=== PATIENT | male | born 1950 | race Caucasian/White ===

== ENCOUNTER 2020-07-13 06:22 | Day surgery (SDC) | payer MEDICARE, OTHER ==
[2020-07-13] MEDS ORDERED: Sodium Chloride 0.9% 1,000 ML IV SCH (07:15)
[2020-07-13] MEDS ORDERED: Propofol 200 MG/20 ML SDV ONE (07:24)
[2020-07-13] MEDS ORDERED: fentaNYL 100 MCG/2 ML SDV ONE (07:24)
[2020-07-13 08:57] VITALS: BP 145/74; PULSE 59
--- NOTE | 2020-07-13 10:31 | OR ---
DATE OF PROCEDURE: 07/13/2020 SURGEON: Kiran Mendes MD PROCEDURE: Esophagogastroduodenoscopy. FINDINGS: 1. Narrowing of the GE junction requiring dilation with 45-[place] balloon. 2. Hiatal hernia approximately 3 cm in size. 3. Acute gastritis (biopsied for H pylori purposes). 4. Inflammation at GE junction concerning for reflux disease. This was biopsied multiple times using cold biopsy forceps. PREOPERATIVE DIAGNOSIS: Dysphagia. POSTOPERATIVE DIAGNOSIS: Dysphagia. RISKS: Risks, benefits, alternatives, and limitations including, but not limited to infection bleeding, false positives, false negatives were explained to the patient along with perforation and other risks not listed here. He understood these risks, wishes to proceed. PROCEDURE IN DETAIL: The patient was placed in left lateral decubitus position. The EGD scope was introduced and advanced atraumatically to the second part of the duodenum. Within the duodenum itself, there was no evidence of duodenitis or ulceration. Within the stomach itself, the patient had gastritis and what could have been a healing area of ulcer versus gastritis. Nonetheless, this was biopsied for H pylori purposes and this appears to be improving. No abnormalities on retroflexion. In the GE junction, there were multiple issues. The patient had a narrowing or stricture which decreased the luminal diameter by approximately 20% to 30%. This was dilated using a 35-[place] balloon and was also biopsied multiple times using cold biopsy forceps. This small area of inflammation of the GE junction was also biopsied using cold biopsy forceps. The remainder of the esophagus inspected was without abnormality. The patient tolerated the procedure well. Kiran Mendes MD /[id number]
== END 2020-07-13 09:22 | disposition home or self-care (01) ==
LOC: JP.SDS 06:22
PROVIDERS: ATTEND Surgery
DX: K20.90 Esophagitis, unspecified without bleeding (principal); K29.00 Acute gastritis without bleeding; K44.9 Diaphragmatic hernia without obstruction or gangrene; K22.2 Esophageal obstruction; I10 Essential (primary) hypertension; I45.4 Nonspecific intraventricular block; E11.9 Type 2 diabetes mellitus without complications
CPT/HCPCS: 88305; 88312; J2704; J3010; J7030

== ENCOUNTER 2023-10-17 07:09 | Day surgery (SDC) | payer MEDICARE, OTHER ==
[2023-10-17] MEDS: Sodium Chloride 0.9% 1,000 ML IV SCH ×2 (07:41→08:42)
[2023-10-17] MEDS ORDERED: 50% Dextrose in Water 50 ML Syringe IVPUSH PRN (07:45)
[2023-10-17] MEDS ORDERED: Glucagon,Human Recombinant 1 MG Vial IM PRN (07:45)
[2023-10-17] MEDS: Insulin Lispro 100 Unit/ML 3 ML KwikPen SUBCUT ONE (07:57)
[2023-10-17] MEDS ORDERED: Propofol 200 MG/20 ML SDV ONE (09:25)
[2023-10-17 10:32] VITALS: BP 139/73; PULSE 70
== END 2023-10-17 11:02 | disposition home or self-care (01) ==
LOC: JP.SDS 07:09
PROVIDERS: ATTEND Surgery
DX: K25.9 Gastric ulcer, unspecified as acute or chronic, without hemorrhage or perforation (principal); K44.9 Diaphragmatic hernia without obstruction or gangrene; I10 Essential (primary) hypertension; E11.9 Type 2 diabetes mellitus without complications
CPT/HCPCS: 43239; 82947; J1815; J2704; J7030; 00731-QZ

== ENCOUNTER 2023-11-18 07:23 | Day surgery (SDC) | payer MEDICARE, OTHER ==
[2023-11-18] MEDS ORDERED: fentaNYL 50 MCG/ML SDV ONE (07:24)
[2023-11-18] MEDS ORDERED: Propofol 200 MG/20 ML SDV ONE (07:24)
[2023-11-18] MEDS: Sodium Chloride 0.9% 1,000 ML IV SCH (07:56)
[2023-11-18 09:49] VITALS: BP 135/65; PULSE 53
== END 2023-11-18 10:00 | disposition home or self-care (01) ==
LOC: JP.SDS 07:23
PROVIDERS: ATTEND Surgery
DX: K25.9 Gastric ulcer, unspecified as acute or chronic, without hemorrhage or perforation (principal); K44.9 Diaphragmatic hernia without obstruction or gangrene; I10 Essential (primary) hypertension; E78.5 Hyperlipidemia, unspecified; E11.9 Type 2 diabetes mellitus without complications
CPT/HCPCS: 00731; 43239; 88305; 88342; J2704; J3010; J7030